=== PATIENT | female | born 1975 | race Caucasian/White ===

== ENCOUNTER 2019-07-30 20:55 | Emergency (ER) | payer OTHER, SELFPAY ==
[2019-07-30] VITALS (13 sets, daily range): BP systolic 115–125; BP diastolic 68–78; PULSE 71–85; RESP 11–13; TEMP 37.1; O2SAT 96–100
--- NOTE | 2019-07-30 21:27 | ED.ANXIETY ---
HPI - Anxiety General Chief Complaint: Psychiatric Symptoms Stated Complaint: ANXIETY/ PANIC ATTACK Time Seen by Provider: 07/30/19 21:03 History of Present Illness HPI narrative: She reports long h/o depression and anxiety. Symptoms have been worse recently. She reports multiple tearful episodes. She told the self contained behavior unit teacher and her both that she wa going to hurt herself. She is currenlty denying this Related Data Home Medications Medication Instructions Recorded Confirmed alprazolam 0.25 mg PO DAILY PRN 07/30/19 duloxetine 60 mg PO DAILY 07/30/19 naltrexone 50 mg PO DAILY 07/30/19 propranolol 20 mg PO Q12H 07/30/19 Allergies Allergy/AdvReac Type Severity Reaction Status Date / Time walnut Allergy Unknown Rash Verified 07/30/19 21:05 Review of Systems Review of Systems: All systems reviewed & are unremarkable except as noted in HPI and below Constitutional: Constitutional: Denies fever(s) Cardiovascular: Cardiovascular: Denies chest pain Respiratory: Respiratory: Denies dyspnea Psychiatric: Psychiatric: Reports anxiety, Reports depression, Denies homicidal ideation and Denies suicidal ideation [facility] Social History Social History (Updated 07/31/19 @ 05:16 by Aaron De León MD) Smoking status: Never smoker Exam Const: General: healthy appearing, no acute distress and alert Orientation/consciousness: patient oriented x3 HENMT: Head: normal to inspection Neck: Neck: normal visual inspection and no lymphadenopathy Chest: Chest palpation & inspection: no tenderness Resp: Effort & Inspection: normal respiratory effort Auscultation: clear to auscultation bilaterally, no rales, no rhonchi and no wheezes Cardio: Jugular venous distension: no JVD Rate: regular rate Rhythm: regular rhythm Heart sounds: no murmurs GI: Inspection: non-distended GI Palp: Yes Soft to palpation and No Tenderness to palpation present (GI) Skin: General skin exam: normal color Neuro: General: patient oriented x3 and moves all extremities Speech: normal speech Extrem: General: no edema Psych: Appearance: well kempt Other: Tearful, depressed Course Vital Signs Vital signs: Vital Signs Temperature 37.1 C 07/30/19 20:54 Pulse Rate 76 07/30/19 20:54 Respiratory Rate 13 07/30/19 20:54 Blood Pressure 115/78 07/30/19 20:54 Pulse Oximetry 99 07/30/19 20:54 Temperature 37.1 C 07/30/19 20:54 Pulse Rate 77 07/31/19 01:45 Respiratory Rate 19 07/31/19 01:45 Blood Pressure 121/77 07/31/19 01:45 Pulse Oximetry 95 07/31/19 01:45 MDM - Anxiety MDM Narrative Medical decision making narrative: Seen by crisis. They made a safety plan and ensured that someone would be with her upon discharge. Medical Records Attestation: I reviewed the patient's medical records. Lab Data Attestation: I reviewed the patient's lab results. Result diagrams: 07/30/19 22:06 07/30/19 22:05 Labs: Lab Results 07/30/19 07/30/19 07/30/19 Range/Units 22:05 22:06 22:06 WBC 5.3 (4.5-10.0) K/mm3 RBC 4.49 (4.2-5.4) M/mm3 Hgb 14.2 (12.0-15.0) g/dL Hct 40.3 (37.0-47.0) % MCV 89.8 (80-100) fl MCH 31.6 (26-34) pg MCHC 35.2 (32-36) g/dl RDW 12.9 (11.5-14.5) % Plt Count 196 (150-375) k/mm3 MPV 11.3 H (7.4-10.4) fl Immature Gran % (Auto) 0.2 (0-0.5) % Neut % (Auto) 38.6 L (45.5-73.1) % Lymph % (Auto) 48.9 H (18.3-44.2) % Hockley % (Auto) 7.4 (2.6-8.5) % Eos % (Auto) 3.6 (0-4.4) % Baso % (Auto) 1.3 H (0.2-1.2) % Lymph # (Auto) 2.59 (0.9-3.2) K/mm3 Hockley # (Auto) 0.4 (0.1-0.6) K/mm3 Eos # (Auto) 0.2 (0-0.3) K/mm3 Baso # (Auto) 0.1 (0.0-0.1) K/mm3 Abs Immat Gran (auto) 0.01 (0.00-0.031) K/mm3 Absolute Neuts (auto) 2.1 (1.3-6.7) K/mm3 Absolute Nucleated RBC 0.0 (0.0-0.012) K/mm3 Nucleated RBC % 0.0 (0.0-0.2) % Sodium 140 (137-145) mmol/L Potassium 3.9
--- NOTE | 2019-07-30 21:28 | PC.NURSE ---
This nurse was just informed that the patient called earlier and spoke with the US and charge nurse stating she wanted to harm herself.
--- NOTE | 2019-07-30 21:48 | PC.NURSE ---
Patient placed in green scrubs, and sitter at bedside.
--- NOTE | 2019-07-30 22:08 | PC.NURSE ---
Patient's Luke calls to get update on patient and give information on patient's history. Patient's states patient was diagnosed with bipolar disorder approx 8 years ago and was placed on medication. Patient's states ever since then patient has not been the same since then, our whole family changed. Patient's states approx 2-3 years ago patient did take a whole bunch of her xanax and then she started drinking but now she is better. Patient's also states at about easter this year she forgot to take her cymbalta and then she took a few of her xanax and she started drinking again. I know she hasn't stopped drinking. Patient's states he is on active duty but states he is getting leave granted and states he cant leave until tomorrow. Patients Bright leaves his number to contact him for updates [phone].
[2019-07-30 22:18] LABS: Basophils Absolute Auto 0.1 K/mm3 (0.0-0.1); Basophils Percent Auto 1.3 % (0.2-1.2); Eosinophils Absolute Auto 0.2 K/mm3 (0-0.3); Eosinophils Percent Auto 3.6 % (0-4.4); Hematocrit 40.3 % (37.0-47.0); Hemoglobin 14.2 g/dL (12.0-15.0); Immature Granulocyte Absolute 0.01 K/mm3 (0.00-0.031); Immature Granulocyte Percent A 0.2 % (0-0.5); Lymphocytes Absolute Auto 2.59 K/mm3 (0.9-3.2); Lymphocytes Percent Auto 48.9 % (18.3-44.2); Mean Corpuscular HGB Conc 35.2 g/dl (32-36); Mean Corpuscular Hemoglobin 31.6 pg (26-34); Mean Corpuscular Volume 89.8 fl (80-100); Mean Platelet Volume 11.3 fl (7.4-10.4); Monocytes Absolute Auto 0.4 K/mm3 (0.1-0.6); Monocytes Percent Auto 7.4 % (2.6-8.5); Neutrophils Absolute Auto 2.1 K/mm3 (1.3-6.7); Neutrophils Percent Auto 38.6 % (45.5-73.1); Platelet Count Result 196 k/mm3 (150-375); Red Blood Count 4.49 M/mm3 (4.2-5.4); Red Cell Distribution Width 12.9 % (11.5-14.5); White Blood Count 5.3 K/mm3 (4.5-10.0)
[2019-07-30 22:20] LABS: Add Urine Microscopic? NO; Appearance Urine Clear (Clear); Bilirubin Urine Negative (Negative); Blood Urine Negative (Negative); Color Urine Yellow (Yellow); Glucose Urine UA Negative (Negative); Ketones Urine Negative (Negative); Leukocyte Esterase Ur Negative LEU/UL (Negative); Nitrate Urine Negative (Negative); Protein Urine Negative (Negative); Specific Grav Ur 1.013 (1.001-1.035); Urobilinogen Urine Negative mg/dL (<2.0)
[2019-07-30 22:31] LABS: Ethanol 79 mg/dL (<10)
[2019-07-30 22:31] LABS: Alanine Aminotransferase 12 U/L (4-35); Albumin Level 4.4 g/dL (3.5-5.1); Alkaline Phosphatase 75 U/L (38-126); Aspartate Amino Transferase 23 U/L (14-36); Bilirubin,Total 0.3 mg/dL (0.2-1.3); Blood Urea Nitrogen 13 mg/dL (7-17); Calcium 8.8 mg/dL (8.4-10.2); Carbon Dioxide 24 mmol/L (22-30); Chloride 108 mmol/L (98-107); Estimated Glomerular Filt Rate > 60; Glucose 99 mg/dL (65-105); Potassium 3.9 mmol/L (3.4-5.0); Sodium 140 mmol/L (137-145)
[2019-07-30 22:36] LABS: Amphetamine Screen Urine Negative (Negative); Barbiturate Screen Urine Negative (Negative); Benzodiazepines Screen Urine Negative (Negative); Cannabinoid Screen Urine Negative (Negative); Cocaine Screen Urine Negative (Negative); Methadone Screen Urine Negative (Negative); Opiate Screen Urine Negative (Negative); Phencyclidine Screen Urine Negative (Negative)
--- NOTE | 2019-07-30 22:51 | PC.NURSE ---
Patient repeatedly attempting to leave room, ED security called to room. Security speaking with patient.
--- NOTE | 2019-07-30 23:01 | PC.NURSE ---
This nurse called Crisis at [id number] and spoke to Ivette.
--- NOTE | 2019-07-30 23:05 | PC.NURSE ---
Ivette, from Crisis stated they will send someone out to evaluate patient.
--- NOTE | 2019-07-30 23:31 | PC.NURSE ---
EDP states patient is medically cleared.
--- NOTE | 2019-07-30 23:44 | PC.NURSE ---
Patient's Bright calls to get update on patient. He states he is able to get a flight out of there in the morning.
--- NOTE | 2019-07-30 23:45 | PC.NURSE ---
Crisis here to evaluate patient.
--- NOTE | 2019-07-31 00:09 | PC.NURSE ---
Assumed care of pt at this time. Report from kedar, RN
[2019-07-31 00:15] VITALS: BP 119/76; PULSE 70; RESP 12; O2SAT 98
[2019-07-31 01:45] VITALS: BP 121/77; PULSE 77; RESP 19; O2SAT 95
--- NOTE | 2019-07-31 01:45 | PC.NURSE ---
called pt's and informed him pt is d/c home w/ sister.
== END 2019-07-31 01:45 | disposition home or self-care (01) ==
PROVIDERS: Emergency Provider Emergency Medicine
DX: F32.9 Major depressive disorder, single episode, unspecified (principal); F41.9 Anxiety disorder, unspecified; Z79.899 Other long term (current) drug therapy
CPT/HCPCS: 36415; 80053; 80307; 81003; 84443; 85025; 99284

== ENCOUNTER 2019-11-08 20:02 | Emergency (ER) | payer OTHER, SELFPAY ==
[2019-11-08 20:02] VITALS: BP 134/73; PULSE 107; RESP 18; TEMP 36.8; O2SAT 100
--- NOTE | 2019-11-08 20:10 | ED.ALCOHOL ---
HPI - Alcohol General Chief Complaint: Alcohol <Aaron De León MD - Last Filed: 11/09/19 15:27> Stated Complaint: drunk <Aaron De León MD - Last Filed: 11/09/19 15:27> Time Seen by Provider: 11/08/19 20:07 <Aaron De León MD - Last Filed: 11/09/19 15:27> History of Present Illness HPI narrative: Behaving strangely at her sons baseball game. Then went unresponsive briefly. Admitted to EMS that she had been drinking alcohol. Reportedly has a h/o alcoholism. Unwilling to answer questions at this time. <Aaron De León MD - Last Filed: 11/09/19 15:27> Related Data Home Medications: Home Medications Medication Instructions Recorded Confirmed alprazolam 0.25 mg PO DAILY PRN 07/30/19 duloxetine 60 mg PO DAILY 07/30/19 naltrexone 50 mg PO DAILY 07/30/19 propranolol 20 mg PO Q12H 07/30/19 <Aaron De León MD - Last Filed: 11/09/19 15:27> Allergies/Adverse Reactions: Allergies Allergy/AdvReac Type Severity Reaction Status Date / Time walnut Allergy Unknown Rash Verified 07/30/19 21:05 <Aaron De León MD - Last Filed: 11/09/19 15:27> Review of Systems Review of Systems: ROS unobtainable: Yes other (Incomplete ROS due to lack of cooperation by the patient ) <Aaron De León MD - Last Filed: 11/09/19 15:27> Cardiovascular: Cardiovascular: Denies chest pain <Aaron De León MD - Last Filed: 11/09/19 15:27> Respiratory: Respiratory: Denies dyspnea <Aaron De León MD - Last Filed: 11/09/19 15:27> Gastrointestinal: Gastrointestinal: Denies nausea <Aaron De León MD - Last Filed: 11/09/19 15:27> [facility] Social History Social History: Social History Smoking status: Never smoker <Aaron De León MD - Last Filed: 11/09/19 15:27> Exam Const: General: healthy appearing, no acute distress and alert <Aaron De León MD - Last Filed: 11/09/19 15:27> HENMT: Head: normal to inspection <Aaron De León MD - Last Filed: 11/09/19 15:27> Eyes: Pupils: Equal, round and reactive pupils present <Aaron De León MD - Last Filed: 11/09/19 15:27> Resp: Effort & Inspection: normal respiratory effort <Aaron De León MD - Last Filed: 11/09/19 15:27> Auscultation: clear to auscultation bilaterally <Aaron De León MD - Last Filed: 11/09/19 15:27> Cardio: Rate: regular rate <Aaron De León MD - Last Filed: 11/09/19 15:27> Rhythm: regular rhythm <Aaron De León MD - Last Filed: 11/09/19 15:27> Skin: General skin exam: normal color <Aaron De León MD - Last Filed: 11/09/19 15:27> Neuro: General: moves all extremities, no focal motor deficits and CN's II-XI intact bilaterally <Aaron De León MD - Last Filed: 11/09/19 15:27> Speech: Abnormal speech present slurred <Aaron De León MD - Last Filed: 11/09/19 15:27> Extrem: General: normal to inspection <Aaron De León MD - Last Filed: 11/09/19 15:27> Course Reevaluation(s) Reevaluation #1: PAtient is awake, alert and oriented x 3. Speech is not slurred .She denies suicidal or homicidal thoughts. Her mother in law is coming to take patient home. <Sherrie Sloan MD - Last Filed: 11/09/19 01:59> Date: 11/09/19 <Sherrie Sloan MD - Last Filed: 11/09/19 01:59> Time: 00:14 <Sherrie Sloan MD - Last Filed: 11/09/19 01:59> Vital Signs Vital signs: Vital Signs Temperature 36.8 C 11/08/19 20:02 Pulse Rate 107 H 11/08/19 20:02 Respiratory Rate 18 11/08/19 20:02 Blood Pressure 134/73 11/08/19 20:02 Pulse Oximetry 100 11/08/19 20:02 Temperature 36.8 C 11/08/19 20:02 Pulse Rate 72 11/09/19 00:00 Respiratory Rate 18 11/09/19 00:00 Blood Pressure 113/82 11/09/19 00:00 Pulse Oximetry 95 11/09/19 00:00 <Aaron De León MD - Last Filed: 11/09/19 15:27> Vital Signs Temperature 36.8 C 11/08/19
[2019-11-08 21:01] VITALS: BP 102/56; PULSE 68; RESP 16; O2SAT 92
[2019-11-08 21:01] LABS: Basophils Absolute Auto 0.1 K/mm3 (0.0-0.1); Basophils Percent Auto 0.7 % (0.2-1.2); Eosinophils Absolute Auto 0.1 K/mm3 (0-0.3); Eosinophils Percent Auto 0.9 % (0-4.4); Hematocrit 44.5 % (37.0-47.0); Hemoglobin 15.6 g/dL (12.0-15.0); Immature Granulocyte Absolute 0.05 K/mm3 (0.00-0.031); Immature Granulocyte Percent A 0.4 % (0-0.5); Immature Platelet Fraction Pct 6.2 % (0.9-11.2); Lymphocytes Absolute Auto 4.93 K/mm3 (0.9-3.2); Lymphocytes Percent Auto 40.7 % (18.3-44.2); Mean Corpuscular HGB Conc 35.1 g/dl (32-36); Mean Corpuscular Volume 91.4 fl (80-100); Mean Platelet Volume 11.3 fl (7.4-10.4); Monocytes Absolute Auto 0.7 K/mm3 (0.1-0.6); Monocytes Percent Auto 5.8 % (2.6-8.5); Neutrophils Absolute Auto 6.2 K/mm3 (1.3-6.7); Neutrophils Percent Auto 51.5 % (45.5-73.1); Platelet Count Result 206 k/mm3 (150-375); Red Blood Count 4.87 M/mm3 (4.2-5.4); Red Cell Distribution Width 12.8 % (11.5-14.5); White Blood Count 12.1 K/mm3 (4.5-10.0)
[2019-11-08 21:02] LABS: Add Urine Microscopic? NO; Appearance Urine Clear (Clear); Bilirubin Urine Negative (Negative); Blood Urine Negative (Negative); Color Urine Colorless (Yellow); Glucose Urine UA Negative (Negative); Ketones Urine Negative (Negative); Leukocyte Esterase Ur Negative LEU/UL (Negative); Nitrate Urine Negative (Negative); Protein Urine Negative (Negative); Specific Grav Ur 1.005 (1.001-1.035); Urobilinogen Urine Negative mg/dL (<2.0)
[2019-11-08 21:05] LABS: Alanine Aminotransferase 14 U/L (4-35); Albumin Level 4.7 g/dL (3.5-5.1); Alkaline Phosphatase 74 U/L (38-126); Anion Gap 12 mmol/L (8-16); Aspartate Amino Transferase 22 U/L (14-36); Bilirubin,Total 0.4 mg/dL (0.2-1.3); Blood Urea Nitrogen 12 mg/dL (7-17); Calcium 9.1 mg/dL (8.4-10.2); Carbon Dioxide 22 mmol/L (22-30); Chloride 104 mmol/L (98-107); Estimated CRCL calculation 103 ml/min; Estimated Glomerular Filt Rate > 60; Glucose 103 mg/dL (65-105); Potassium 3.1 mmol/L (3.4-5.0); Sodium 138 mmol/L (137-145)
[2019-11-08 21:08] LABS: Atypical Lymphocytes Present; Platelet Estimate Adequate (Adequate)
[2019-11-08 21:17] LABS: Amphetamine Screen Urine Negative (Negative); Barbiturate Screen Urine Negative (Negative); Benzodiazepines Screen Urine Negative (Negative); Cannabinoid Screen Urine Negative (Negative); Cocaine Screen Urine Negative (Negative); Methadone Screen Urine Negative (Negative); Opiate Screen Urine Negative (Negative); Phencyclidine Screen Urine Negative (Negative)
[2019-11-08 21:27] LABS: Ethanol 363 mg/dL (<10)
[2019-11-08 22:00] VITALS: BP 101/55; PULSE 69; RESP 16; O2SAT 93
[2019-11-08 23:00] VITALS: BP 100/62; PULSE 70; RESP 17; O2SAT 93
[2019-11-09] VITALS: BP 113/82; PULSE 72; RESP 18; O2SAT 95
--- NOTE | 2019-11-09 | PC.NURSE ---
Spoke with Radha Agudelo (mother n law) she will come and miner pick patient when discharged. Patient beligerant -demanding to speak with Radha-wheeled bed out to phone so patient could talk. Patient then assisted to bathroom. this RN to be notified when ride arrives. Dr Sloan aware
== END 2019-11-09 00:25 | disposition home or self-care (01) ==
PROVIDERS: Emergency Provider Emergency Medicine
DX: F10.229 Alcohol dependence with intoxication, unspecified (principal); Y90.8 Blood alcohol level of 240 mg/100 ml or more
CPT/HCPCS: 36415; 80053; 80307; 81003; 81025; 84443; 85025; 85055; 99283

== ENCOUNTER 2020-07-10 16:32 | Emergency (ER) | payer OTHER, SELFPAY ==
[2020-07-10 16:40] VITALS: BP 152/90; PULSE 69; RESP 18; TEMP 36.1; O2SAT 98
--- NOTE | 2020-07-10 16:40 | ED.URI ---
HPI - URI/Sore Throat General Chief Complaint: Upper Respiratory Infection Stated Complaint: Ear Pain Time Seen by Provider: 07/10/20 16:40 Source: patient and RN notes reviewed Mode of arrival: ambulatory Limitations: no limitations History of Present Illness HPI Narrative: 44-year-old female presents to the [facility] with complaints of bilateral ear pain, worse on the right than the left. She might have an ear infection. Denies fevers. No headache. No nausea vomiting or diarrhea. No chest pain or shortness of breath. Related Data Home Medications Medication Instructions Recorded Confirmed alprazolam 0.25 mg PO DAILY PRN 07/30/19 duloxetine 60 mg PO DAILY 07/30/19 naltrexone 50 mg PO DAILY 07/30/19 propranolol 20 mg PO Q12H 07/30/19 Allergies Allergy/AdvReac Type Severity Reaction Status Date / Time walnut Allergy Unknown Rash Verified 07/30/19 21:05 Review of Systems Review of Systems: All systems reviewed & are unremarkable except as noted in HPI and below Constitutional: Constitutional: Reports as per HPI, Denies chills and Denies fever(s) ENT: Reports system reviewed and no additional complaints, except as documented and Denies sore throat Comments: Bilateral ear pain and pressure Cardiovascular: Cardiovascular: Reports no additional cardiovascular complaints and Denies chest pain Respiratory: Respiratory: Reports no additional respiratory complaints, Denies cough, Denies dyspnea and Denies wheezing Gastrointestinal: Gastrointestinal: Reports no additional gastrointestinal complaints, Denies abdominal pain, Denies nausea and Denies vomiting Musculoskeletal: Musculoskeletal: Reports no additional musculoskeletal complaints Integumentary/Breasts: Skin/Breast: Reports system reviewed and no additional complaints, except as docu Neurologic: Reports system reviewed and no additional complaints, except as documented and Denies headache(s) Psychiatric: Psychiatric: Reports no additional psychiatric complaints PMFSH Past Medical History Medical History (Updated 07/10/20 @ 19:12 by Naz Luna) Anxiety Depression Hypertension Social History Social History Smoking status: Never smoker Comments At the time of my signature, I reviewed and agree with the nursing past medical, surgical, social, and family history. There is no relevant family history pertinent to the patient complaint. Exam Const: General: healthy appearing, no acute distress and alert Nutritional Appearance: well nourished Orientation/consciousness: patient oriented x3 HENMT: Head: normal to inspection Ears: external ears normal and TM abnormal bulging, wth effusion and with fluid behind the TM bilateral; not erythematous General nose exam: Normal external nose present, Abnormal external nose present, Abnormal mucous membranes and turbinates present boggy (Worse on the left than the right) and Nasal discharge present clear Mouth: Yes Normal oral and palatal mucosa present and Yes lip normal Eyes: Pupils: Equal, round and reactive pupils present Neck: Neck: normal visual inspection and no lymphadenopathy Chest: Chest palpation & inspection: normal inspection of the chest Resp: Effort & Inspection: normal respiratory effort and no use of accessory muscles Auscultation: clear to auscultation bilaterally, no crackles, no rales, no rhonchi and no wheezes Cardio: Rate: regular rate Rhythm: regular rhythm GI: GI Palp: Yes Soft to palpation : General: Yes no CVA tenderness Skin: General skin exam: normal color Rashes: no rashes Neuro: General: patient oriented x3 and moves all extremities Speech: normal speech Gait exam (Neuro): Normal gait present Extrem: General: normal to inspection Psych: Appearance: grossly normal and well kempt Mental Status: mental status grossly normal Affect: normal affect Attitude: cooperative Thought content: Yes Normal thought content
== END 2020-07-10 16:56 | disposition home or self-care (01) ==
PROVIDERS: Emergency Provider Nurse Practitioner; PCP Internal Medicine
DX: J30.2 Other seasonal allergic rhinitis (principal); I10 Essential (primary) hypertension; F41.9 Anxiety disorder, unspecified; F32.9 Major depressive disorder, single episode, unspecified
CPT/HCPCS: 99213; G0463

== ENCOUNTER 2020-08-28 17:31 | Emergency (ER) | payer OTHER, SELFPAY ==
--- NOTE | ~2020-08-28 | XR_ITS ---
EXAMINATION: XR foot LT min 3V DATE: 08/28/2020 17:49 INDICATION: Left foot pain. TECHNIQUE: 4 views of left foot were obtained. COMPARISON: None. FINDINGS: Bone alignment is normal. No fracture. Joint spaces are well maintained. IMPRESSION: 1. No etiology for the patient's symptoms. Reviewed, dictated and finalized at location A.
[2020-08-28 17:37] VITALS: BP 153/93; PULSE 68; RESP 16; TEMP 36.7; O2SAT 100
--- NOTE | 2020-08-28 17:59 | ED.GENADULT ---
HPI - General Adult General Chief complaint: Extremity Injury, Lower Stated complaint: left foot pain Time Seen by Provider: 08/28/20 17:50 Source: patient and RN notes reviewed Mode of arrival: ambulatory Limitations: no limitations History of Present Illness HPI narrative: 44-year-old female presents today with complaints of left foot pain and swelling for 1 day. Jeane reports increasing pain and swelling throughout the day, noticed symptoms while wearing flats. No treatment. No known injury. Hurts to bear weight. No radiation of pain. No numbness, tingling, or loss of mobility. Exacerbating factor applying weight. Denies inability to bear weight. Discoloration to top of foot. Denies suspect foreign body. Denies fever. LMP 3 days ago. Remains active. The patient reports she has not been diagnosed with COVID-19. The patient reports she received 2 Zigswitch COVID-19 vaccines, last on June 13, 2020. The patient reports she is not waiting for the results of a COVID-19 lab test. The patient reports she does not have chills, weakness, or fatigue. The patient reports she does not have a new or worsening cough or shortness of breath. Denies chest pain. The patient reports she does not have any rhinorrhea, congestion, loss of taste or smell, sore throat, and diarrhea. Denies recent traveling. Denies concerns for COVID-19 or exposures. At this time, the patient is not suspected of having COVID-19. Some parts of this dictation were generated by voice recognition software and may contain typographical and/or grammatical inaccuracies. Related Data Home Medications Medication Instructions Recorded Confirmed brexpiprazole [Rexulti] 3 mg PO DAILY 08/28/20 08/28/20 escitalopram oxalate [Lexapro] 20 mg PO DAILY 08/28/20 08/28/20 propranolol 20 mg PO BID 08/28/20 08/28/20 trazodone 50 mg PO HS 08/28/20 08/28/20 Allergies Allergy/AdvReac Type Severity Reaction Status Date / Time walnut Allergy Unknown Rash Verified 08/28/20 17:41 Review of Systems Review of Systems: Narrative: CONSTITUTIONAL: Denies fever, chills, sweats. EYES: Denies visual changes, redness, discharge. ENT: Denies rhinorrhea, congestion, sore throat, otalgia. CARDIOVASCULAR: Denies chest pain, palpitations, edema. RESPIRATORY: Denies dyspnea, wheezing, cough. GASTROINTESTINAL: Denies abdominal pain, nausea, vomiting, diarrhea. GENITOURINARY: Denies dysuria, hematuria, abnormal discharge. SKIN: Denies rash or itching. MUSCULOSKELETAL: Denies acute back pain or myalgia. Complaints of bruising, pain, and swelling to the left foot. NEUROLOGIC: Denies numbness or focal weakness. PSYCHIATRIC: Denies anxiety or depression. All other systems reviewed are negative, except as documented in HPI and below. [facility] Past Medical History Medical History (Updated 08/29/20 @ 00:01 by Chet Bajwa) Anxiety delivery delivered Depression Hypertension Surgical History Surgical History (Updated 08/28/20 @ 18:22 by DAJA Vyas) H/O section X3 History of cholecystectomy History of endometrial ablation History of tonsillectomy History of tubal ligation Family History Family History (Updated 08/28/20 @ 18:20 by DAJA Vyas) Father Unknown family medical history Mother Depression Manic Brain aneurysm Social History Social History (Updated 08/28/20 @ 18:23 by DAJA Vyas) Smoking status: Former smoker Tobacco type: cigarettes Second hand tobacco smoke exposure: No Smoking end date: 03/22/17 Alcohol intake: never Substance use: never Living arrangements: with family Occupation/Education: occupation Gender identity (if verbalized by the patient): Female Sexual Orientation (if Verbalized by the Patient): Straight or Heterosexual Comments At time of signature, agree with the nurse past medical, surgical, social, and family history. There is no relevant family history
[2020-08-28 18:30] VITALS: BP 140/90
--- NOTE | 2020-08-28 18:33 | PC.NURSE ---
1830- Pt states she has not taken her hypertension medications today.
== END 2020-08-28 18:30 | disposition home or self-care (01) ==
PROVIDERS: Emergency Provider Nurse Practitioner Family; PCP Internal Medicine
DX: M25.572 Pain in left ankle and joints of left foot (principal); Z87.891 Personal history of nicotine dependence; F41.9 Anxiety disorder, unspecified; F32.9 Major depressive disorder, single episode, unspecified
CPT/HCPCS: 73630; 99213; G0463

== ENCOUNTER 2020-10-20 09:20 | Emergency (ER) | payer OTHER, SELFPAY ==
[2020-10-20 09:31] VITALS: BP 143/93; PULSE 99; RESP 16; O2SAT 100
[2020-10-20 09:54] LABS: Basophils Absolute Auto 0.1 K/mm3 (0.0-0.1); Basophils Percent Auto 0.8 % (0.2-1.2); Eosinophils Absolute Auto 0.1 K/mm3 (0-0.3); Eosinophils Percent Auto 0.9 % (0-4.4); Hematocrit 43.3 % (37.0-47.0); Hemoglobin 15.4 g/dL (12.0-15.0); Immature Granulocyte Absolute 0.02 K/mm3 (0.00-0.031); Immature Granulocyte Percent A 0.3 % (0-0.5); Lymphocytes Absolute Auto 2.11 K/mm3 (0.9-3.2); Mean Corpuscular HGB Conc 35.6 g/dl (32-36); Mean Corpuscular Volume 92.7 fl (80-100); Mean Platelet Volume 10.4 fl (7.4-10.4); Monocytes Absolute Auto 0.4 K/mm3 (0.1-0.6); Monocytes Percent Auto 5.3 % (2.6-8.5); Neutrophils Absolute Auto 4.9 K/mm3 (1.3-6.7); Neutrophils Percent Auto 64.7 % (45.5-73.1); Platelet Count Result 206 k/mm3 (150-375); Red Blood Count 4.67 M/mm3 (4.2-5.4); Red Cell Distribution Width 14.4 % (11.5-14.5); White Blood Count 7.5 K/mm3 (4.5-10.0)
[2020-10-20 10:01] LABS: Ethanol 227 mg/dL (<10)
[2020-10-20 10:02] LABS: Alanine Aminotransferase 41 U/L (4-35); Albumin Level 4.4 g/dL (3.5-5.1); Alkaline Phosphatase 89 U/L (38-126); Anion Gap 12 mmol/L (8-16); Aspartate Amino Transferase 61 U/L (14-36); Bilirubin,Total 0.4 mg/dL (0.2-1.3); Blood Urea Nitrogen 8 mg/dL (7-17); Calcium 8.5 mg/dL (8.4-10.2); Carbon Dioxide 22 mmol/L (22-30); Chloride 106 mmol/L (98-107); Estimated CRCL calculation 112 ml/min; Estimated Glomerular Filt Rate > 60; Glucose 89 mg/dL (65-110); Sodium 140 mmol/L (137-145)
[2020-10-20 10:13] LABS: Add Urine Microscopic? YES; Appearance Urine Clear (Clear); Bilirubin Urine Negative (Negative); Blood Urine Negative (Negative); Color Urine Yellow (Yellow); Glucose Urine UA Negative (Negative); Ketones Urine Trace mg/dL (Negative); Leukocyte Esterase Ur Negative LEU/UL (Negative); Mucus Urine Rare /lpf; Nitrate Urine Negative (Negative); Protein Urine Negative (Negative); RBC Urine 0-2 /hpf (0-2); Specific Grav Ur 1.011 (1.001-1.035); Urobilinogen Urine Negative mg/dL (<2.0); WBC Urine 0-3 /hpf
--- NOTE | 2020-10-20 10:20 | PC.NURSE ---
pt rates moderate risk on suicide scale. pt denies si/hi at this time. per arsh pt does not need sitter at this time.
[2020-10-20 10:21] LABS: Amphetamine Screen Urine Negative (Negative); Barbiturate Screen Urine Negative (Negative); Benzodiazepines Screen Urine Negative (Negative); Cannabinoid Screen Urine Negative (Negative); Cocaine Screen Urine Negative (Negative); Methadone Screen Urine Negative (Negative); Opiate Screen Urine Negative (Negative); Phencyclidine Screen Urine Negative (Negative)
[2020-10-20] MEDS: LACTATED RINGERS 1,000 ML 999 ML IV CONT (10:35)
[2020-10-20] MEDS: POTASSIUM CHLORIDE 20 MEQ PACKET (FOR LIQUID) 40 MEQ PO (10:35)
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
[2020-10-20 11:39] LABS: EDCOVIDSCREEN Negative (Negative)
--- NOTE | 2020-10-20 14:00 | PC.NURSE ---
pt resting on stretcher. denies complaints at this time. aware of plan of care.
[2020-10-20 15:53] VITALS: BP 143/84; PULSE 78; RESP 16
--- NOTE | 2020-10-20 15:56 | PC.NURSE ---
pt resting in darkened room for comfort. remains cooperative and pleasant with staff. continue waiting time lapse for redraw of etoh
[2020-10-20 19:31] LABS: Ethanol < 10 mg/dL (<10)
--- NOTE | 2020-10-20 19:41 | PC.NURSE ---
per shelbie cai pt medically clear. crisis may be called at this time.
--- NOTE | 2020-10-20 19:45 | PC.NURSE ---
crisis will send someone out evette
[2020-10-20 20:05] VITALS: BP 145/81; PULSE 74; RESP 15; O2SAT 100
--- NOTE | 2020-10-20 21:08 | PC.NURSE ---
crisis at bedside talking w/ pt at this time.
[2020-10-20 22:43] VITALS: BP 157/80; PULSE 70; RESP 17; O2SAT 98
== END 2020-10-20 22:47 | disposition home or self-care (01) ==
PROVIDERS: Emergency Medicine Emergency Medical Services; Emergency Provider Emergency Medicine; PCP Internal Medicine
DX: F32.9 Major depressive disorder, single episode, unspecified (principal); F10.10 Alcohol abuse, uncomplicated; Y90.7 Blood alcohol level of 200-239 mg/100 ml; Z20.822 Contact with and (suspected) exposure to COVID-19
CPT/HCPCS: 36415; 80053; 80307; 81001; 81025; 84443; 85025; 87426; 96360; 99284; A9270; C9803; J7120

== ENCOUNTER 2020-11-10 11:17 | Emergency (ER) | payer SELFPAY ==
[2020-11-10 11:59] VITALS: BP 133/83; PULSE 88; RESP 16; TEMP 36.1; O2SAT 100
--- NOTE | 2020-11-10 13:08 | ED.GENADULT ---
HPI - General Adult General Chief complaint: Trauma Stated complaint: Mouth Injury Time Seen by Provider: 11/10/20 13:05 Source: patient and RN notes reviewed Mode of arrival: ambulatory Limitations: no limitations History of Present Illness HPI narrative: 44-year-old female presents to the [facility] with abrasions and broken teeth to the right chin and upper lip. Patient states that she drank too much last night tripped and fell because she was wearing flip-flops at midnight last night. Bleeding is well controlled Related Data Home Medications Medication Instructions Recorded Confirmed brexpiprazole [Rexulti] 3 mg PO DAILY 08/28/20 08/28/20 escitalopram oxalate [Lexapro] 20 mg PO DAILY 08/28/20 08/28/20 propranolol 20 mg PO BID 08/28/20 08/28/20 trazodone 50 mg PO HS 08/28/20 08/28/20 Allergies Allergy/AdvReac Type Severity Reaction Status Date / Time walnut Allergy Unknown Rash Verified 08/28/20 17:41 Review of Systems Review of Systems: All systems reviewed & are unremarkable except as noted in HPI and below Constitutional: Constitutional: Reports no additional constitutional complaints, Denies chills and Denies fever(s) Eyes: Eyes: Reports no additional eye complaints ENT: Reports as per HPI Cardiovascular: Cardiovascular: Reports no additional cardiovascular complaints and Denies chest pain Respiratory: Respiratory: Reports no additional respiratory complaints, Denies cough and Denies dyspnea Gastrointestinal: Gastrointestinal: Reports no additional gastrointestinal complaints Musculoskeletal: Musculoskeletal: Reports as per HPI Integumentary/Breasts: Skin/Breast: Reports as per HPI Neurologic: Reports system reviewed and no additional complaints, except as documented Psychiatric: Psychiatric: Reports no additional psychiatric complaints Allergic/Immunologic: Allergic/Immunologic: Reports no additional allergic/immunologic complaints [facility] Past Medical History Medical History Anxiety delivery delivered Depression Hypertension Surgical History Surgical History H/O section X3 History of cholecystectomy History of endometrial ablation History of tonsillectomy History of tubal ligation Family History Family History Father Unknown family medical history Mother Depression Manic Brain aneurysm Social History Social History Smoking status: Former smoker Tobacco type: cigarettes Second hand tobacco smoke exposure: No Smoking end date: 03/22/17 Alcohol intake: never Substance use: never Gender identity (if verbalized by the patient): Female Sexual Orientation (if Verbalized by the Patient): Straight or Heterosexual Comments At the time of my signature, I reviewed and agree with the nursing past medical, surgical, social, and family history. There is no relevant family history pertinent to the patient complaint. Exam Const: General: alert and ill appearing acutely (Pain) Nutritional Appearance: well nourished Orientation/consciousness: patient oriented x3 Limitations: no limitations HENMT: Nose image: 1. Puncture wound with abrasions up towards the to the nare. Abrasions to the chin area as well right side Teeth and gingiva: poor dentition (Teeth 8 9, fractured) Throat: posterior oropharynx normal Other: Patient had no orbital tenderness. No tenderness through the mandible or through the face. Has multiple abrasions to the right side of the nose into the lip and chin area. They are clean and dry with no signs of infection. Multiple broken teeth. Eyes: Conjunctivae: conjunctivae normal Pupils: Equal, round and reactive pupils present Neck: Neck: normal visual inspection, no lymphadenopathy and no meningeal signs Chest: Chest palpation &
[2020-11-10] MEDS: TETANUS,DIPHTHERIA,AC PERTUSSIS ADULT (0.5 ML) BOOSTRIX IM (13:40)
== END 2020-11-10 14:04 | disposition home or self-care (01) ==
PROVIDERS: Emergency Provider Nurse Practitioner; PCP Internal Medicine
DX: S00.511A Abrasion of lip, initial encounter (principal); S02.5XXA Fracture of tooth (traumatic), initial encounter for closed fracture; S00.81XA Abrasion of other part of head, initial encounter; S09.93XA Unspecified injury of face, initial encounter; F32.9 Major depressive disorder, single episode, unspecified; F41.9 Anxiety disorder, unspecified; I10 Essential (primary) hypertension; Z87.891 Personal history of nicotine dependence; Z23 Encounter for immunization; W01.0XXA Fall on same level from slipping, tripping and stumbling without subsequent striking against object, initial encounter
CPT/HCPCS: 90471; 90715; 99213; G0463

== ENCOUNTER 2022-12-18 18:17 | Emergency (ER) | payer OTHER, SELFPAY ==
--- NOTE | ~2022-12-18 | CT_ITS ---
EXAMINATION: CTA chest PE protocol DATE: 12/18/2022 20:48 INDICATION: Shortness of breath. Chest heaviness. Elevated d-dimer. TECHNIQUE: Computed tomography (CT) pulmonary angiogram of the chest was performed with 100 mL Omnipa que-350 intravenous contrast. Additional 3D reconstructions utilizing coronal maximum intensity proje ction (MIP) were performed. Automated exposure control and iterative reconstruction technique were em ployed. The dose-length product was 275.87 mGy-cm. COMPARISON: None FINDINGS: Excellent contrast opacification of the pulmonary arteries and no significant motion artifact yieldin g diagnostic for the study demonstrating no pulmonary embolism. Minimal dependent atelectasis in the bilateral lower lobes. No pneumonia, pulmonary edema or other pulmonary infiltrates. No pleural effus ion or pneumothorax. Heart size is normal. No pericardial effusion. Thoracic aorta is normal in calib er with no dissection. No pathologically enlarged thoracic lymphadenopathy. Cholecystectomy clips at the gallbladder fossa. Bones are unremarkable. IMPRESSION: 1. No pulmonary embolism or other acute cardiopulmonary disease. Reviewed, dictated and finalized at location A.
--- NOTE | ~2022-12-18 | XR_ITS ---
EXAMINATION: XR chest 2V DATE: 12/18/2022 18:47 INDICATION: Chest tightness and dyspnea TECHNIQUE: PA and lateral views of the chest were obtained. COMPARISON: None FINDINGS: The lungs are clear with no focal airspace opacities, pulmonary edema, pleural effusion or pneumothor ax. The cardiomediastinal silhouette is normal. Visualized bones and soft tissues are unremarkable. IMPRESSION: 1. No acute cardiopulmonary disease. Reviewed, dictated and finalized at location A.
[2022-12-18 18:23] VITALS: BP 168/97; PULSE 79; RESP 16; TEMP 36.6; O2SAT 100
--- NOTE | 2022-12-18 18:25 | ECG_ITS ---
Measurements Intervals [place] Rate: 61 P: 5 OH: 167 QRS: 43 QRSD: 101 T: 48 QT: 412 QTc: 415 Interpretive Statements SINUS RHYTHM NO PREVIOUS ECG AVAILABLE FOR COMPARISON Electronically Signed On 12-19-2022 12:57:00 CDT by Jigar Kelley M.D.
[2022-12-18 18:43] VITALS: O2SAT 100
--- NOTE | 2022-12-18 18:54 | ED.SOB ---
HPI - SOB/Dyspnea General Chief Complaint: Shortness of Breath/Dyspnea Stated Complaint: chest tightness, SOB Time Seen by Provider: 12/18/22 18:33 Source: patient Mode of arrival: ambulatory Limitations: no limitations History of Present Illness HPI Narrative: Patient is a 47-year-old female who presents to the ED with chest tightness/heaviness. Patient reports she was out with her family last night and experienced an episode of dizziness, described as a woozy sensation. This resolved on its own quickly however patient began having chest tightness/heaviness afterwards, described as though there is a ton of bricks on her chest. She states the discomfort has been intermittent throughout the day today. Denies any significant aggravating or alleviating factors. Denies aggravation w/ exertion. She states that when she is preoccupied with something else, she does not notice the discomfort as much. She denies feeling short of breath, but states she frequently feels like she has to force herself to take a deep breath. Does also report intermittent racing heart palpitations. Denies previous history of CAD or blood clots. Denies recent long distance travel, lower extremity pain or swelling, hormonal control use. Denies recent cough or cold symptoms, fevers, abdominal pain, nausea, vomiting. Related Data Home Medications Medication Instructions Recorded Confirmed brexpiprazole 3 mg tablet (Rexulti) 3 mg PO DAILY 08/28/20 08/28/20 escitalopram oxalate 20 mg tablet 20 mg PO DAILY 08/28/20 08/28/20 (Lexapro) propranolol 20 mg tablet 20 mg PO BID 08/28/20 08/28/20 trazodone 50 mg tablet 50 mg PO HS 08/28/20 08/28/20 Allergies Allergy/AdvReac Type Severity Reaction Status Date / Time walnut Allergy Unknown Rash Verified 08/28/20 17:41 Review of Systems Review of Systems: CONSTITUTIONAL: Denies fever, chills, or sweats. EYES: Denies visual changes. CARDIOVASCULAR: See HPI. RESPIRATORY: See HPI. GASTROINTESTINAL: Denies abdominal pain, nausea, vomiting, or diarrhea. MUSCULOSKELETAL: Denies back pain, joint pain, or myalgia. NEUROLOGIC: See HPI. All systems reviewed & are unremarkable except as noted in HPI and below PMFSH Past Medical History Medical History Anxiety delivery delivered Depression Hypertension Surgical History Surgical History H/O section X3 History of cholecystectomy History of endometrial ablation History of tonsillectomy History of tubal ligation Family History Family History Father Unknown family medical history Mother Depression Manic Brain aneurysm Social History Social History Smoking status: Former smoker Tobacco type: cigarettes Second hand tobacco smoke exposure: No Smoking end date: 03/22/17 Alcohol intake: never Substance use: never Living arrangements: with family Occupation/Education: occupation Gender identity (if verbalized by the patient): Female Sexual Orientation (if Verbalized by the Patient): Straight or Heterosexual Exam Narrative: GENERAL: Well appearing, well-nourished, non-toxic, in no acute distress. HEAD: Normocephalic, atraumatic. NECK: Supple. No adenopathy, no masses. RESPIRATORY: Airway patent, respirations nonlabored. Clear to auscultation bilaterally, no rales, rhonchi, wheezing. CARDIOVASCULAR: Regular rate and rhythm without murmurs, rubs, or gallops. Radial pulses 2+ and equal bilaterally. ABDOMINAL: Soft, nontender, nondistended, no hepatosplenomegaly. Normoactive BS. MUSCULOSKELETAL: Moves all extremities. Strength/ROM intact without gross deformities. No edema. No calf tenderness. No chest wall tenderness. SKIN: Warm, dry, normal color. No rashes. NEURO: A&O X
[2022-12-18 19:09] LABS: Basophils Absolute Auto 0.1 K/mm3 (0.0-0.1); Basophils Percent Auto 1.3 % (0.2-1.2); Eosinophils Absolute Auto 0.1 K/mm3 (0-0.3); Eosinophils Percent Auto 2.1 % (0-4.4); Hematocrit 39.9 % (37.0-47.0); Hemoglobin 14.2 g/dL (12.0-15.0); Immature Granulocyte Absolute 0.01 K/mm3 (0.00-0.031); Immature Granulocyte Percent A 0.2 % (0-0.5); Lymphocytes Percent Auto 41.9 % (18.3-44.2); Mean Corpuscular HGB Conc 35.6 g/dl (32-36); Mean Corpuscular Hemoglobin 30.9 pg (26-34); Mean Corpuscular Volume 86.9 fl (80-100); Mean Platelet Volume 11.2 fl (7.4-10.4); Monocytes Absolute Auto 0.3 K/mm3 (0.1-0.6); Monocytes Percent Auto 5.9 % (2.6-8.5); Neutrophils Absolute Auto 2.3 K/mm3 (1.3-6.7); Neutrophils Percent Auto 48.6 % (45.5-73.1); Platelet Count Result 193 k/mm3 (150-375); Red Blood Count 4.59 M/mm3 (4.2-5.4); Red Cell Distribution Width 12.5 % (11.5-14.5); White Blood Count 4.8 K/mm3 (4.5-10.0)
[2022-12-18 19:24] LABS: Alanine Aminotransferase 16 U/L (6-35); Albumin Level 4.6 g/dL (3.5-5.1); Alkaline Phosphatase 60 U/L (38-126); Anion Gap 13 mmol/L (8-16); Aspartate Amino Transferase 22 U/L (14-36); Bilirubin,Total 0.6 mg/dL (0.2-1.3); Blood Urea Nitrogen 13 mg/dL (7-17); Calcium 9.2 mg/dL (8.4-10.2); Carbon Dioxide 21 mmol/L (22-30); Chloride 107 mmol/L (98-107); D Dimer 1.11 ug/mL (<0.48); Estimated CRCL calculation 79 ml/min; Estimated Glomerular Filt Rate > 60; Glucose 93 mg/dL (65-110); Sodium 141 mmol/L (137-145)
[2022-12-18 19:32] LABS: Magnesium 2.1 mg/dL (1.6-2.3)
[2022-12-18 19:38] LABS: Troponin I < 0.012 ng/mL (0.000-0.034)
[2022-12-18] MEDS: POTASSIUM CHLORIDE 20 MEQ ER TABLET 40 MEQ PO ×2 (20:01→21:26)
[2022-12-18] MEDS: SODIUM CHLORIDE 0.9% IV 1,000 ML 999 ML IV CONT (20:02)
[2022-12-18] MEDS: KETOROLAC 30 MG/ML VIAL (*BKC) IV PUSH (21:26)
[2022-12-18 22:49] LABS: Troponin I < 0.012 ng/mL (0.000-0.034)
[2022-12-18 23:19] VITALS: BP 118/76; PULSE 68; RESP 19; O2SAT 100
== END 2022-12-18 23:21 | disposition home or self-care (01) ==
PROVIDERS: Emergency Medicine; Emergency Provider Physician Assistant; PCP Internal Medicine
DX: R07.89 Other chest pain (principal); E87.6 Hypokalemia; I10 Essential (primary) hypertension; F41.9 Anxiety disorder, unspecified; F32.A Depression, unspecified; Z87.891 Personal history of nicotine dependence; Z90.49 Acquired absence of other specified parts of digestive tract
CPT/HCPCS: 36415; 71046; 71275; 80053; 83735; 84443; 84484; 85025; 85380; 93005; 96361; 96374; 99284; A9270; J1885; J7030; Q9967

== ENCOUNTER 2023-01-23 13:44 | Emergency (ER) | payer OTHER, SELFPAY ==
[2023-01-23 13:56] VITALS: BP 153/79; PULSE 71; RESP 16; TEMP 37.1; O2SAT 99
--- NOTE | 2023-01-23 15:42 | ED.GENADULT ---
HPI - General Adult General Chief complaint: Upper Respiratory Infection Stated complaint: sore throat Source: patient Mode of arrival: ambulatory Limitations: no limitations History of Present Illness HPI narrative: Patient presents for evaluation of sore throat. Symptom onset yesterday. She now has headache and bilateral ear pain. No fever, chills, nausea, vomiting, cough, shortness of breath. Her two children recently had strep pharyngitis. She is not taking any medication for her symptoms. Related Data Home Medications Medication Instructions Recorded Confirmed norethindrone acetate 1 mg-ethinyl tablet 01/23/23 estradiol 20 mcg tablet Allergies Allergy/AdvReac Type Severity Reaction Status Date / Time walnut Allergy Unknown Rash Verified 01/23/23 14:06 naproxen Allergy Swelling Verified 01/23/23 14:45 of Lip/Tongue/Throat Review of Systems Review of Systems: CONSTITUTIONAL: Denies fever, chills, or sweats. EYES: Denies visual changes, redness, or discharge. ENT: Reports bilateral ear pain and sore throat CARDIOVASCULAR: Denies chest pain, palpitations, or edema. RESPIRATORY: Denies cough or dyspnea. GASTROINTESTINAL: Denies abdominal pain, nausea, vomiting, or diarrhea. GENITOURINARY: Denies dysuria or hematuria. SKIN: Denies rash or itching. MUSCULOSKELETAL: Denies back pain, joint pain, or myalgia. NEUROLOGIC: Reports headache. Denies numbness, dizziness, or weakness. PSYCHIATRIC: Denies anxiety or depression. [facility] Past Medical History Medical History Anxiety delivery delivered Depression Hypertension Surgical History Surgical History H/O section X3 History of cholecystectomy History of endometrial ablation History of tonsillectomy History of tubal ligation Family History Family History Father Unknown family medical history Mother Depression Manic Brain aneurysm Social History Social History Smoking status: Former smoker Tobacco type: cigarettes Second hand tobacco smoke exposure: No Smoking end date: 01/16/18 Alcohol intake: never Substance use: never Living arrangements: with family Occupation/Education: occupation Gender identity (if verbalized by the patient): Female Sexual Orientation (if Verbalized by the Patient): Straight or Heterosexual Exam Narrative: GENERAL: Well-appearing, well-nourished, and in no acute distress. HEAD: Normocephalic, atraumatic. EYES: PERRLA and EOMI. ENT: Nares clear, no rhinorrhea or epistaxis. Mucous membranes moist. Tonsils absent. Posterior pharyngeal erythema without exudate. Uvula is midline. Bilateral TMs pearly mcguire nonbulging NECK: Supple. No adenopathy or masses. No carotid bruits or JVD CHEST: Clear to auscultation. No respiratory distress. No wheezes rales or rhonchi HEART: Regular rate and rhythm. No murmur heard. Normal peripheral pulses. ABDOMEN: Soft, nontender, nondistended, normal active bowel sounds. EXTREMITIES: Normal range of motion. No edema. SKIN: Warm, dry, no rash. NEURO: No focal deficits. Alert and oriented x3. PSYCH: Normal mood and affect. Course Course Emergency Course: This is a 47-year-old female who presented for evaluation of sore throat. Strep, COVID, influenza were all negative. Based upon her symptoms and recent contacts with strep, we agreed to move forward with amoxicillin. Increase hydration. [id number] agents for symptom management. Follow up with primary provider. Go to the ER for worsening symptoms. Pt in agreement with plan of care. Level of Care: Express Care Visit Vital Signs Vital signs: Vital Signs Temperature 37.1 C 01/23/23 13:56 Pulse Rate 71
== END 2023-01-23 15:50 | disposition home or self-care (01) ==
PROVIDERS: Emergency Provider Nurse Practitioner; PCP Internal Medicine
DX: J02.9 Acute pharyngitis, unspecified (principal); I10 Essential (primary) hypertension; Z20.822 Contact with and (suspected) exposure to COVID-19; Z87.891 Personal history of nicotine dependence
CPT/HCPCS: 87081; 87426; 87804; 87880; 99213; C9803; G0463

== ENCOUNTER 2023-10-04 14:42 | Outpatient (CLI) | payer OTHER, SELFPAY ==
--- NOTE | ~2023-10-04 | CT_ITS ---
EXAMINATION: CT abdomen pelvis wo/w con DATE: 10/04/2023 15:10 INDICATION: Right ovarian mass TECHNIQUE: Computed tomography (CT) of the abdomen and pelvis was performed without and with 100 mL O mnipaque-350 intravenous contrast. Automated exposure control and iterative reconstruction technique were employed. The dose-length product was 906.33 mGy-cm. COMPARISON: 03/19/2015 FINDINGS: Lung bases are clear. Heart size normal. No pericardial or pleural effusion. Cholecystectomy clips th e gallbladder fossa. Liver, spleen, pancreas, bilateral adrenal glands and kidneys are normal. Bladde r is normal. Bowels including the appendix are normal. Likely tubal ligation clips on either side of the normal anteverted uterus. Right adnexa is unremarkable. There is a 2.1 cm relatively low-attenuat ion nonenhancing left adnexal cyst. Trace amount of likely physiologic free fluid in the cul-de-sac. No pathologically enlarged abdominal or pelvic lymphadenopathy. Tiny fat-containing umbilical hernia. Transitional thoracolumbar and lumbosacral segments. IMPRESSION: 1. 2.1 cm relatively low-attenuation nonenhancing left adnexal cyst. Reviewed, dictated and finalized at location A.
== END 2023-10-04 14:43 ==
LOC: MICIMG 14:43
PROVIDERS: PCP Internal Medicine; Visit Provider Obstetrics & Gynecology
DX: N83.8 Other noninflammatory disorders of ovary, fallopian tube and broad ligament (principal)
CPT/HCPCS: 74178; Q9967

== ENCOUNTER 2024-05-17 10:15 | Emergency (ER) | payer OTHER, SELFPAY ==
[2024-05-17 10:22] VITALS: BP 169/95; PULSE 71; RESP 20; TEMP 36.3; O2SAT 100
--- NOTE | 2024-05-17 10:32 | ED_ITS ---
HPI - URI/Sore Throat General Chief Complaint: Upper Respiratory Infection Stated Complaint: Sore Throat/Ears Irritation Time Seen by Provider: 05/17/24 10:30 Source: patient Mode of arrival: ambulatory Limitations: no limitations History of Present Illness HPI Narrative: Shanta is a 48-year-old female patient presenting to the clinic today with complaints runny nose, cough, congestion, sore throat, and ear pain. She reports symptoms have been going on for 5 days. She denies any fevers, chills, or body aches. States that her ears feel clogged up and that she is having a productive cough with some yellowish green phlegm at times. She does vape. Denies any shortness of breath or chest pain. Does feel as though she is wheezing at times. MD elicited complaint: cough, sore throat and nasal congestion Related Data Home Medications ?Medication ?Instructions ?Recorded ?Confirmed ?Last Taken ?Type norethindrone acetate 1 mg-ethinyl tablet 01/23/23 Unknown History estradiol 20 mcg tablet bupropion HCl 150 mg 24 hr tablet, mg PO 05/17/24 Unknown History extended release Allergies Allergy/AdvReac Type Severity Reaction Status Date / Time walnut Allergy Unknown Rash Verified 01/23/23 14:06 naproxen Allergy Swelling Verified 01/23/23 14:45 of Lip/Tongue/Throat amoxicillin AdvReac Intermediate Itching Verified 05/17/24 10:20 Review of Systems Review of Systems: Pertinent positives per HPI. Patient denies any fever, chills, rash, headache, visual changes, dizziness, shortness of breath, chest pain, palpitations, nausea, vomiting, diarrhea, constipation, abdominal pain, or any urinary issues. [facility] Past Medical History Medical History Anxiety delivery delivered Depression Hypertension Surgical History Surgical History History of tubal ligation History of tonsillectomy H/O section X3 History of endometrial ablation History of cholecystectomy Family History Family History Father Unknown family medical history Mother Depression Manic Brain aneurysm Social History Social History (Reviewed 05/17/24 @ 10:36 by HANNAH Weeks Smoking status: Former smoker Tobacco type: cigarettes Second hand tobacco smoke exposure: No Smoking end date: 03/22/17 Alcohol intake: never Substance use: never Living arrangements: with family Occupation/Education: occupation Gender identity (if verbalized by the patient): Female Sexual Orientation (if Verbalized by the Patient): Straight or Heterosexual Comments At the time of my signature, I reviewed and agree with the nursing past medical, surgical, social, and family history. There is no relevant family history pertinent to the patient complaint. Exam Narrative: General: Well-developed, well nourished, in no apparent distress Head: Normocephalic, atraumatic Eyes: Pupils equally round and reactive to light bilaterally, EOM intact, sclera and conjunctive clear, no discharge, lids normal Ears: TMs intact and clear, ear canals clear, no drainage, grossly hearing normal. Nose: Nares patent, clear nasal discharge, no inflammation, no sinus tenderness. Mouth: Oral pharynx without lesions or masses, good dentition, MMM. Postnasal drip Neck: Supple, trachea midline, no enlargement of anterior or posterior cervical nodes, no thyroid masses or goiter palpable. Cardio: Regular rate and rhythm, s1 and s2 normal, no murmur appreciated. Resp: Clear to auscultation bilaterally, no rhonchi, rales, wheezing or rubs Course Course Emergency Course: Portions of this record may have been created with voice recognition software. Level of Care: Express Care Visit Vital Signs Vital signs: Vital Signs Temperature 36.3 C L 05/17/24 10:22 Pulse Rate 71 05/17/24 10:22 Respiratory Rate 20 05/17/24 10:22 Blood Pressure 169/95 H 05/17/24 10:22 Pulse Oximetry 100 05/17/24 10:22 Oxygen Delivery Room Air 05/17/24 10:22 Temperature 36.3 C L 05/17/24 10:22 Pulse Rate 71 05/17/24 10:22 Respiratory Rate 20 05/17/24 10:22 Blood Pressure 169/95 H 05/17/24 10:22 Pulse Oximetry 100 05/17/24 10:22 Oxygen Delivery Room Air 05/17/24 10:22 Vital signs reviewed MDM - URI/Sore Throat MDM Narrative Medical decision making narrative: At the time of visit patient is resting comfortably on the exam table. Patient appears to be nontoxic. Plan: I suspect patient has URI with cough and congestion. Prescription for albuterol inhaler prednisone was sent to the pharmacy. Supportive measures were discussed with the patient and they voiced understanding discharge instructions and agrees to treatment plan. Return precautions reviewed Differential Diagnosis Differential diagnosis: Likely upper respiratory infection, otitis media, sinusitis, viral infection, bronchitis, influenza, pharyngitis and other (COVID) Discharge Plan Discharge Clinical Impression: Upper respiratory infection with cough and congestion Patient Disposition: Home, Self-Care Condition: Stable Instructions: Antibiotic Form, Upper Respiratory Infection (ED) Additional Instructions: No sign of bacterial infection in the clinic today. Take prescription medications only as prescribed-prednisone and albuterol inhaler May take Mucinex as needed for cough Increase fluids and stay well hydrated Tylenol/motrin for pain/fever Flonase and OTC antihistamines as directed Vicks vapor rub to open sinuses Sinus rinses for congestion Cepacol spray, cough drops, throat lozenges, warm tea with honey/lemon, gargle salt water to soothe throat BRAT diet for diarrhea Clear liquids x 24 hours then advance as tolerated for nausea/vomiting Go to the ED if you develop a worsening in your condition- high fever not controlled by Tylenol or Motrin, dehydration, weakness, lethargy, shortness of breath, or chest pain. Follow up with your PCP in 3-5 days if symptoms persist. Patient Language: Swedish Prescriptions: New prednisone 20 mg tablet 40 mg PO DAILY 5 Days Qty: 10 0RF albuterol sulfate 90 mcg/actuation HFA aerosol inhaler 2 puff inhalation Q4-6H PRN (Reason: shortness of breath or wheezing) 30 Days Qty: 8.5 0RF No Action bupropion HCl 150 mg tablet extended release 24 hr PO norethindrone ac-eth estradiol 1-20 mg-mcg tablet amoxicillin 500 mg capsule 500 mg PO Q12H Qty: 20 0RF Follow-up/Referrals: Melanie,Abe Lee MD [Primary Care Provider] - Stand Alone Forms: Work/School Release IP Time of Disposition: 10:34 Quality NIHSS Nursing Documentation ED NIHSS nursing documentation: reviewed/agree
== END 2024-05-17 10:42 | disposition home or self-care (01) ==
PROVIDERS: Emergency Provider Nurse Practitioner Family; PCP Internal Medicine
DX: J06.9 Acute upper respiratory infection, unspecified (principal); I10 Essential (primary) hypertension; Z87.891 Personal history of nicotine dependence
CPT/HCPCS: 99213; G0463